=== PATIENT | male | born 1980 | race Caucasian/White ===

== ENCOUNTER 2019-01-09 18:03 | Emergency (ER) | payer OTHER ==
[~2019-01-09] VITALS: Ht 180.3 cm; Wt 102.0 kg
[2019-01-09] MEDS ORDERED: IBUPROFEN 600MG TABLET PO ONE (19:15)
[2019-01-09 22:03] VITALS: BP 137/73
== END 2019-01-09 22:06 | disposition home or self-care (01) ==
LOC: ER 18:03
DX: S82.55XA Nondisplaced fracture of medial malleolus of left tibia, initial encounter for closed fracture (principal); S82.292A Other fracture of shaft of left tibia, initial encounter for closed fracture; J45.909 Unspecified asthma, uncomplicated; F32.9 Major depressive disorder, single episode, unspecified; G47.30 Sleep apnea, unspecified; F12.10 Cannabis abuse, uncomplicated; W10.8XXA Fall (on) (from) other stairs and steps, initial encounter; Y93.89 Activity, other specified; Y92.018 Other place in single-family (private) house as the place of occurrence of the external cause
CPT/HCPCS: 29505; 73590; 73610; 99283; Z7610